=== PATIENT | female | born 1940 | race Caucasian/White ===

== ENCOUNTER 2018-12-21 14:18 | Emergency (ER) | payer MEDICARE, OTHER ==
[2018-12-21 14:28] VITALS: BP 115/51
--- NOTE | 2018-12-21 15:14 | XRAY Report ---
Reason: fall Procedure Date: 12/21/2018 Accession Number: [id number] / [id number] Procedure: XR - Ankle 3 View RT CPT Code: FULL RESULT: EXAM: RIGHT ANKLE RADIOGRAPHY EXAM DATE: 12/21/2018 02:46 PM. CLINICAL HISTORY: Fall. COMPARISON: None. TECHNIQUE: 4 views. FINDINGS: Limited by patient positioning. Bones: The bones are osteopenic. Tiny romelia of bone adjacent to the tip of the medial malleolus. Ill-defined sclerotic line extending horizontally through the upper aspect of the calcaneal tuberosity. No suspicious osseous lesion. Joints: Pes cavus configuration of the foot. There is mild osteoarthritis of the midfoot and tibiotalar joint. No dislocation. Other: Diffuse soft tissue swelling most pronounced over the lateral malleolus. IMPRESSION: 1. The bones are osteopenic. 2. Tiny romelia of bone adjacent to the tip of the medial malleolus is age indeterminate, however, favored to represent sequela of old trauma rather than acute avulsion fracture. 3. Ill-defined sclerotic line extending horizontally through the upper aspect of the calcaneal tuberosity favored to be sequela of old trauma or artifact, however, recommend correlation with point tenderness and consider CT for further evaluation if indicated. 4. Diffuse soft tissue swelling most pronounced over the lateral malleolus. RADIA
--- NOTE | 2018-12-21 15:20 | ED Physician Documentation ---
PD HPI LOWER EXT INJURY - Stated complaint Stated Complaint: R ANKLE INJ - Chief complaint Chief Complaint: Trauma Ext - History obtained from History obtained from: Patient - History of Present Illness PD HPI LOW EXT INJURY LOCATION: Right, Ankle Type of injury: Fall Where injury occurred: Home Timing - onset: How many days ago (2) Timing - duration: Days (2) Timing - details: Gradual onset Pain level max: 5 Pain level now: 3 Improved by: Rest, Ice, Immobilization Worsened by: Moving, Palpating Associated symptoms: Swelling. 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 HEENT: Tonsil/Adenoidectomy - Present Medications Home Medications: Ambulatory Orders Medication Instructions Recorded Confirmed ALPRAZolam [Xanax] 1 - 3 tab PO DAILY PRN 10/14/13 10/14/13 Carvedilol 1 tab PO DAILY 10/14/13 10/14/13 Furosemide [Lasix] 1 tab PO DAILY 10/14/13 10/14/13 Gabapentin 3 cap PO DAILY 10/14/13 10/14/13 Hydrocodone/Acetaminophen [Vicodin 2 tab PO Q6HR PRN 10/14/13 10/14/13 5-300 mg Tablet] Lovastatin 1 tab PO DAILY 10/14/13 10/14/13 Omeprazole [Prilosec] 2 cap PO DAILY 10/14/13 10/14/13 Potassium Chloride [Klor-Con] 1 packet PO DAILY 10/14/13 10/14/13 Warfarin [Coumadin] 1 tab PO DAILY 10/14/13 10/14/13 predniSONE [Prednisone] 1 tab PO DAILY 10/14/13 10/14/13 raNITIdine [Zantac] 1 tab PO DAILY 10/14/13 10/14/13 traMADol [Ultram] 1 - 2 tab PO TID PRN 10/14/13 10/14/13 - Allergies Allergies/Adverse Reactions: Allergies Allergy/AdvReac Type Severity Reaction Status Date / Time GRETTA Inhibitors Allergy Respiratory Verified 12/21/18 14:24 levofloxacin [From Levaquin] Allergy Rash Verified 12/21/18 14:24 Sulfa (Sulfonamide Allergy Hives Verified 12/21/18 14:24 Antibiotics) - Social History Does the pt smoke?: No Smoking Status: Never smoker Does the pt drink ETOH?: Yes Does the pt have substance abuse?: No - Immunizations Immunizations are current?: Yes - POLST Patient has POLST: No PD ED PE NORMAL - Vitals Vital signs reviewed: Yes - General General: Alert and oriented X 3, No acute distress - HEENT HEENT: Moist mucous membranes - Neck Neck: Supple, no meningeal sign - Derm Derm: Warm and dry - Extremities Extremities: Other (Mild diffuse tenderness about the right ankle. Neurovascular intact. No deformity) - Neuro Neuro: Alert and oriented X 3 Results - Vitals Vitals: Vital Signs - 24 hr 12/21/18 14:24 Temperature 36.6 C Heart Rate 70 Respiratory 16 Rate Blood Pressure 115/51 L O2 Saturation 98 Oxygen O2 Source Room air - Rads (name of study) Right ankle x-ray Radiology: Prelim report reviewed, EMP read contemporaneously, See rad report (1. The bones are osteopenic. 2. Tiny romelia of bone adjacent to the tip of the medial malleolus is age indeterminate, however, favored to represent sequela of old trauma rather than acute avulsion fracture. 3. Ill-defined sclerotic line extending horizontally through the upper aspect of the calcaneal tuberosity favored to be sequela of old trauma or artifact, however, recommend correlation with point tenderness and consider CT for further evaluation if indicated. 4. Diffuse soft tissue swelling most pronounced over the lateral malleolus. ) PD MEDICAL DECISION MAKING - ED course Complexity details: reviewed results, re-evaluated patient, considered differential, d/w patient, d/w family ED course: Patient with a right ankle sprain. Appears to have sequelae of old injuries on x-ray. This occurred 2 days ago. Placed in a walking boot for comfort. We will have her continue range of motion exercises at home and follow-up with her doctor. Patient counseled regarding signs and symptoms for which I believe and urgent re-evaluation would be necessary. Patient with good understanding of and agreement to plan and is comfortable going home at this time This document was made in part using voice recognition software. While efforts are made to proofread this document, sound alike and grammatical errors may occur. Departure - Departure Disposition: 01 Home, Self Care Clinical Impression: Right ankle sprain Qualifiers: Encounter type: initial encounter Involved ligament of ankle: unspecified ligament Qualified Code(s): S93.401A - Sprain of unspecified ligament of right ankle, initial encounter Condition: Good Instructions: ED Sprain Ankle Follow-Up: your,doctor in 1 week [Other] Comments: You can stay in the walking boot for the next week. I do want you to start moving your ankle gently and stretching it however. You can weight-bear as tolerated. Do not stay in the boot longer than a week. There do not appear to be any acute fractures on your x-rays today. Follow-up with your doctor for repeat evaluation next week. Discharge Date/Time: 12/21/18 15:45
== END 2018-12-21 15:45 | disposition home or self-care (01) ==
LOC: ED 14:18
DX: S93.401A Sprain of unspecified ligament of right ankle, initial encounter (principal); W01.0XXA Fall on same level from slipping, tripping and stumbling without subsequent striking against object, initial encounter; Y92.009 Unspecified place in unspecified non-institutional (private) residence as the place of occurrence of the external cause; M85.871 Other specified disorders of bone density and structure, right ankle and foot; I11.0 Hypertensive heart disease with heart failure; I50.9 Heart failure, unspecified; Z86.718 Personal history of other venous thrombosis and embolism; Z86.711 Personal history of pulmonary embolism; Z79.01 Long term (current) use of anticoagulants
CPT/HCPCS: 85610; 99282; 99283

== ENCOUNTER 2021-03-17 15:48 | Emergency (ER) | payer MEDICARE, OTHER ==
[2021-03-17] MEDS ORDERED: SODIUM CHLORIDE 0.9% 1,000 ML IV STA (16:23)
--- NOTE | 2021-03-17 16:26 | ED Physician Documentation ---
PD HPI FOCAL NEURO - Stated complaint Stated Complaint: IRREGULAR HR - Chief complaint Chief Complaint: Neuro - History obtained from History obtained from: Patient, Family - History of Present Illness Timing - onset: How many weeks ago (1) Timing - duration: Weeks (1) Timing - details: Abrupt onset, Still present Severity of deficit: Moderate Weakness: Arm, Hand, Left Numbness: No: Face, Arm, Hand, Leg, Foot, Right, Left, Other Associated symptoms: Headache, Fall. No: Nausea / vomiting, Seizure, Syncope, Head injury Contributing factors: positive: Anticoagulated Baseline status: positive: A&OX3, ambulatory, indep Similar symptoms before: Has not had sx before Recently seen: Clinic - Additional information Additional information: 81-year-old female has had a prior DVT and PE is on Xarelto she had a fall about 1 week ago and since that time has had some difficulty intermittently with left arm weakness. She is now dropping things with the left hand as well she has some clumsiness associated with this. She has some difficulty talking with getting the words out. She states that she did not find any difficulty with understanding what was being said or is saying the words that she meant to say just that her mouth did not form the words well. She indicates that she has been urinating a lot a lot of fluids seems to have clear urine. She has had diarrhea this past week and nausea and vomiting or dry heaves. She did fall but does not think she hit her head. Review of Systems Constitutional: denies: Fever, Chills, Myalgias, Fatigue Eyes: denies: Decreased vision Ears: denies: Ear pain Nose: denies: Congestion Throat: denies: Sore throat Cardiac: denies: Chest pain / pressure, Palpitations Respiratory: denies: Dyspnea, Cough GI: reports: Diarrhea. denies: Abdominal Pain, Nausea, Vomiting : denies: Dysuria, Frequency Skin: denies: Rash Musculoskeletal: denies: Neck pain, Back pain, Extremity pain Neurologic: reports: Focal weakness, Difficulty speaking, Syncope. 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 HEENT: Tonsil/Adenoidectomy - Present Medications Home Medications: Ambulatory Orders Medication Instructions Recorded Confirmed ALPRAZolam [Xanax] 1 - 3 tab PO DAILY PRN 10/14/13 10/14/13 Carvedilol 1 tab PO DAILY 10/14/13 10/14/13 Furosemide [Lasix] 1 tab PO DAILY 10/14/13 10/14/13 Gabapentin 3 cap PO DAILY 10/14/13 10/14/13 Hydrocodone/Acetaminophen [Vicodin 2 tab PO Q6HR PRN 10/14/13 10/14/13 5-300 mg Tablet] Lovastatin 1 tab PO DAILY 10/14/13 10/14/13 Omeprazole [Prilosec] 2 cap PO DAILY 10/14/13 10/14/13 Potassium Chloride [Klor-Con] 1 packet PO DAILY 10/14/13 10/14/13 Warfarin [Coumadin] 1 tab PO DAILY 10/14/13 10/14/13 predniSONE [Prednisone] 1 tab PO DAILY 10/14/13 10/14/13 raNITIdine [Zantac] 1 tab PO DAILY 10/14/13 10/14/13 traMADol [Ultram] 1 - 2 tab PO TID PRN 10/14/13 10/14/13 - Allergies Allergies/Adverse Reactions: Allergies Allergy/AdvReac Type Severity Reaction Status Date / Time GRETTA Inhibitors Allergy Respiratory Verified 03/17/21 15:57 levofloxacin [From Levaquin] Allergy Rash Verified 03/17/21 15:57 Sulfa (Sulfonamide Allergy Hives Verified 03/17/21 15:57 Antibiotics) - Social History Does the pt smoke?: No Smoking Status: Never smoker Does the pt drink ETOH?: Yes Does the pt have substance abuse?: No - Immunizations Immunizations are current?: Yes - POLST Patient has POLST: No PD ED PE NORMAL - Vitals Vital signs reviewed: Yes (hypertensive ) - General General: Alert and oriented X 3, No acute distress, Well developed/nourished - HEENT HEENT: Atraumatic, PERRL, EOMI, Other (The scalp is palpated deeply without tenderness. ) - Neck Neck: Supple, no meningeal sign, No bony TTP - Cardiac Cardiac: RRR, No murmur - Respiratory Respiratory: No respiratory distress, Clear bilaterally - Abdomen Abdomen: Normal bowel sounds, Soft, Non tender, Non distended, No organomegaly - Back Back: No CVA TTP, No spinal TTP - Derm Derm: Normal color, Warm and dry, No rash - Extremities Extremities: No deformity, No edema - Neuro Neuro: Alert and oriented X 3, account supervisor 2-12 intact, No motor deficit, No sensory deficit, Normal speech Eye Opening: Spontaneous Motor: Obeys Commands Verbal: Oriented GCS Score: 15 - Psych Psych: Normal mood, Normal affect NIHSS - Time Time: 16:15 - Level of Consciousness Level of consciousness: (0) Alert, Keenly responsive LOC Questions: (0) Answers both Q's correct LOC Commands: (0) Performs both correctly - Gaze Best Gaze: (0) Normal - Visual Visual: (0) No loss - Facial Palsy Facial Palsy: (0) Normal, symmetrical movement - Motor Arms (both separate) Motor Arm (right): (0) No drift Motor Arm (left): (0) No drift - Motor Legs (both separate) Motor Leg (right): (0) No drift Motor Leg (left): (0) No drift - Limb Ataxia Limb Ataxia: (0) Absent - Sensory Sensory: (0) Normal - Best Language Best Language: (0) No aphasia - Dysarthria Dysarthria: (0) Normal - Extinction and Inattention (formally neg Extinction and inattention: (0) No abnormality - Total Score/Results Total Score/Result: 0 Results - Vitals Vitals: Vital Signs - 24 hr 03/17/21 03/17/21 15:57 16:01 Temperature 36.4 C L 36.5 C Heart Rate 80 80 Respiratory 18 18 Rate Blood Pressure 147/92 H 147/92 H O2 Saturation 95 95 Oxygen O2 Source Room air - EKG (time done) 1600 Rate: Rate (enter#) (71) Other comments: Other comments (flat T waves ) Compare to prior EKG: Old EKG unavailable Computer interpretation: Agree with computer - Labs Labs: Laboratory Tests 03/17/21 03/17/21 03/17/21 16:29 16:29 16:29 WBC 7.2 RBC 4.03 L Hgb 12.9 Hct 39.1 MCV 97.0 MCH 32.0 H MCHC 33.0 RDW 13.3 Plt Count 210 MPV 10.6 Neut # (Auto) 4.9 Lymph # (Auto) 1.2 L [place] # (Auto) 0.9 Eos # (Auto) 0.1 Baso # (Auto) 0.1 Absolute Nucleated RBC 0.00 Nucleated RBC % 0.0 Sodium 138 Potassium 3.5 Chloride 100 L Carbon Dioxide 24 Anion Gap 14.0 H BUN 27 H Creatinine 1.5 H Estimated GFR (MDRD) 33 L Glucose 140 H Calcium 10.4 H Total Bilirubin 0.7 AST 20 ALT 14 Alkaline Phosphatase 68 Troponin I High Sens 9.7 Total Protein 7.1 Albumin 3.6 Globulin 3.5 Albumin/Globulin Ratio 1.0 Lipase 30 Procedures - IVC sono (time) 1620 Bedside IVC sono: IVC measures (cm) (0.81), Dehydration (est 2 liter deficit) PD MEDICAL DECISION MAKING - ED course Complexity details: reviewed old records, reviewed results, re-evaluated patient, considered differential, d/w patient, d/w family ED course: 81-year-old female on Xarelto has had a fall and since that time she has had vomiting and she has had some diarrhea. She has developed some intermittent left arm weakness and dysarthria. She is currently symptom-free. She is evaluated here in the emerge department found to be significantly dehydrated on interrogation the inferior vena cava. She has had diarrhea and vomiting. She is administered intravenous saline and work-up of the vasculature to her head and neck is obtained At shift change the studies are pending and care of the patient is turned over to Dr. Arambula.
--- NOTE | 2021-03-17 16:27 | XRAY Report ---
PROCEDURE: Chest 1 View X-Ray INDICATIONS: Chest pain TECHNIQUE: One view of the chest was acquired. COMPARISON: None FINDINGS: Surgical changes and devices: None. Lungs and pleura: No pleural effusions or pneumothorax. Chronic interstitial changes are present. Mediastinum: Mediastinal contours appear normal. Heart size is normal. Bones and chest wall: No suspicious bony lesions. Overlying soft tissues appear unremarkable. IMPRESSION: No acute pulmonary process. Reviewed by: Serena Hernandes MD on 03/17/2021 4:25 PM [facility] Approved by: Serena Hernandes MD on 03/17/2021 4:25 PM [facility] Station ID: [id number]
[2021-03-17 16:39] LABS: BASOPHILS # (AUTO) 0.1 10^3/uL (0.0-0.1); BASOPHILS % (AUTO) 0.7 %; EOSINOPHILS # (AUTO) 0.1 10^3/uL (0.0-0.7); EOSINOPHILS % (AUTO) 1.3 %; HCT - HEMATOCRIT 39.1 % (37.0-47.0); HGB - HEMOGLOBIN 12.9 g/dL (12.0-16.0); LYMPHOCYTES # (AUTO) 1.2 10^3/uL (1.5-3.5); LYMPHOCYTES % (AUTO) 16.3 %; MEAN PLATELET VOLUME 10.6 fL (7.9-10.8); MONOCYTES # (AUTO) 0.9 10^3/uL (0.0-1.0); MONOCYTES % (AUTO) 12.7 %; NEUTROPHILS # (AUTO) 4.9 10^3/uL (1.5-6.6); NEUTROPHILS % (AUTO) 68.7 %; PLT - PLATELET COUNT 210 10^3/uL (130-450); RED BLOOD COUNT 4.03 10^6/uL (4.20-5.40); RED CELL DISTRIBUTION WIDTH 13.3 % (12.0-15.0); WHITE BLOOD COUNT 7.2 x10^3/uL (4.8-10.8)
[2021-03-17 17:07] LABS: ALBUMIN 3.6 g/dL (3.2-5.5); BILIRUBIN,TOTAL 0.7 mg/dL (0.2-1.0); CALCIUM 10.4 mg/dL (8.5-10.3); CREATININE 1.5 mg/dL (0.4-1.0); POTASSIUM 3.5 mmol/L (3.5-5.0); TOTAL PROTEIN 7.1 g/dL (6.7-8.2)
[2021-03-17] MEDS ORDERED: iohexoL-300 100 ML VIAL ONE (17:11)
--- NOTE | 2021-03-17 19:00 | CT Report ---
PROCEDURE: ANGIO HEAD W/WO INDICATIONS: L arm weakness fall xaralto CONTRAST: IV CONTRAST: Isovue 300 ml: 80 PO CONTRAST: *NO PO CONTRAST TECHNIQUE: Precontrast 4.5 mm thick angled axial sections acquired from the foramen magnum to the vertex. Afte r the administration of intravenous contrast, 1 mm thick sections acquired through the [place] is. Postcontrast 4.5 mm thick sections then re-acquired from the foramen magnum to the vertex. 3-di mensional lsaliwb-rmjrvcxix-luwjehgnmk (MIP) and/or volume rendering reformats were acquired of the c entral intracranial vasculature. For radiation dose reduction, the following was used: automated ex posure control, adjustment of mA and/or kV according to patient size. COMPARISON: None FINDINGS: Image quality: Excellent. Anterior circulation: There is absence of flow in the intracranial right internal carotid artery comp atible with proximal occlusion. There is normal flow in the intracranial left internal carotid artery . Atherosclerotic calcifications noted in the cavernous and clinoid segments of the left internal car otid artery which causes mild narrowing of the vessel. There is reconstitution of very diminished ulysses w in the supraclinoid segment of the right internal carotid artery presumably via retrograde flow of the right ophthalmic artery and collateral flow to the [place]. There is diminished flow in the right middle cerebral artery. There is normal flow in the anterior communicating arteries bilater ally and in the left middle cerebral artery. The anterior communicating artery is seen. No aneurysms are seen. Posterior circulation: Atherosclerotic calcifications noted in the V4 segments of the vertebral arter ies bilaterally. There is normal flow in the basilar artery. Flow within the posterior cerebral arter ies is normal and symmetric. The left posterior tibial artery has a origin. No aneurysms are se en. Normal contrast opacification of the dural sinuses. CSF spaces: Ventricles are normal in size and shape. Basal cisterns are patent. No extra-axial flu id collections. Brain: Small hypodense area with loss of chsiholm-white matter differentiation is noted in the right fron bianka lobe most compatible with subacute infarct. No midline shift. No intracranial bleeds or masses. Chisholm-white matter interface appears intact. Skull and face: Calvarium and facial bones appear intact, without suspicious lesions. Sinuses: Visualized sinuses and mastoids are clear. IMPRESSION: 1. Small subacute infarct involving the right frontal lobe. 2. No intracranial hemorrhage. 3. Absence of flow in the intracranial right internal carotid artery compatible with proximal occlusi on. There is reconstitution of diminished flow in the supraclinoid segment of the right internal warner tid artery likely via retrograde flow in the right ophthalmic artery and collateral flow from the cir [place]. 4. Diminished flow in the right middle cerebral artery. Normal flow noted in the right anterior cereb ral artery likely related to collateral flow. 5. Normal flow in the left anterior middle cerebral arteries. 6. No large vessel occlusion or hemodynamically significant stenosis involving the posterior circulat ion. Reviewed by: Haley Julian MD, PhD on 03/17/2021 5:59 PM [place] Approved by: Haley Julian MD, PhD on 03/17/2021 5:59 PM [facility] Station ID: [id number]
--- NOTE | 2021-03-17 19:07 | CT Report ---
PROCEDURE: ANGIO NECK W INDICATIONS: L arm weakness dysarthria CONTRAST: IV CONTRAST: Isovue 300 ml: 80 PO CONTRAST: *NO PO CONTRAST TECHNIQUE: After the administration of intravenous contrast, 1.5 mm axial sections acquired from the aortic arch to the [place] of [place]. Coronal 3-D maximum intensity projection (MIP) and/or volume rendering ref ormats were then performed. For radiation dose reduction, the following was used: automated exposur e control, adjustment of mA and/or kV according to patient size. COMPARISON: None. FINDINGS: Image quality: Excellent. Carotid system: The great vessels demonstrate a conventional anatomy as they arise from the aortic a rch. The origins of the common carotid arteries appear patent. Scattered soft and calcified atherosc lerotic plaque noted in the common carotid arteries bilaterally. Soft atherosclerotic plaque noted in the distal right common carotid artery which extends into the right internal carotid artery origin w hich causes focal, high-grade, greater than 90% stenosis.. Calcified and soft atherosclerotic plaque causes high-grade stenosis to near occlusion of the proximal right internal carotid artery approximat zulay 5 mm distal to the origin of the vessel. There is very diminished flow in the right internal warner tid artery distal to the high-grade stenosis at the origin. There is very diminished flow in the intr acranial segments of the right internal carotid artery. Calcified atherosclerotic plaque in the origi n left internal carotid artery causes moderate, 50-60% stenosis of the vessel. Posterior circulation: Minimal atherosclerotic irregularity without measurable stenosis noted in the origin of the right vertebral artery. Origin left vertebral artery is fully patent. The more superior portions of the vertebral arteries demonstrate normal course and caliber. They join to form a melina l appearing basilar artery. Soft tissues: Visualized neck soft tissues demonstrate no suspicious abnormalities. The thyroid is normal in size and there are no incidental findings. Emphysematous changes noted in the lungs bilater ally. Bones: No suspicious bony lesions. Spine degenerative disc disease and facet arthropathy are noted. Visualized cervical spine appears normally aligned. IMPRESSION: 1. 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 There is very diminished flow in the right internal carotid artery distal to the proximal stenosis. 2. Moderate, 50-60% stenosis of the origin the left internal carotid artery. 3. No hemodynamically significant stenosis involving the vertebral arteries. The estimate of stenosis included in the report of the imaging study was calculated using the NASCET method Reviewed by: Haley Julian MD, PhD on 03/17/2021 6:06 PM [facility] Approved by: Haley Julian MD, PhD on 03/17/2021 6:06 PM [facility] Station ID: [id number]
[2021-03-17] MEDS ORDERED: ASPIRIN 325 MG TABLET PO STA (19:16)
--- NOTE | 2021-03-17 19:23 | ED Physician Documentation ---
ED Addendum - Addendum Addendum: 03/17/21 19:[address] Hernández at shift change. Briefly this is a 81-year-old woman with history of DVT and PE currently on Xarelto who presented with waxing and waning left-sided neurologic symptoms 7 days ago. On examination now she is mildly weak in the right hand and leg but does not have any drift. CT imaging of the head and neck with angiography shows high-grade stenosis of the proximal right ICA, and 50 to 60% stenosis of the left ICA. She has evidence of a small subacute right frontal lobe infarct and absence of flow in the intracranial right internal carotid artery due to the proximal occlusion. There is reconstitution of diminished flow in the supraclinoid segment of the right internal carotid artery likely via retrograde flow in the right ophthalmic artery and collateral flow from the [place]. Of note she did have an episode of blurred vision on the first day of symptoms. She was administered aspirin and calls were made for potential transfer to a facility capable of neurologic and vascular consultation and intervention. Note made that during the current COVID outbreak we expect her boarding time in the emergency department to be excessive and not standard of care but unavoidable. 03/17/21 19:41 I discussed the case with Dr. Roberson, her telestroke neurologist by phone. We went over the read and since it is occluded, and the stroke is a week old. He did not think she needs to be transferred for urgent vascular evaluation. That said out of an abundance of caution does recommend vascular follow-up in the short- term. Patient happy with this plan. She was given a copy of the CAT scans on a CD to aid in her follow-up.Diagnosis 1. Completed stroke 2. Occlusion of right internal carotid artery 3. Adequate anticoagulation
[2021-03-17 19:47] LABS: INR 1.1 (0.8-1.2); PT - PROTHROMBIN TIME 12.6 secs (9.9-12.6)
[2021-03-17 20:15] VITALS: BP 130/70
[2021-03-17 20:52] LABS: B. PARAPERTUSSIS- RESP PCR PAN NOT DETECTED; B. PERTUSSIS- RESP PCR PANEL NOT DETECTED; C. PNEUMONIAE- RESP PCR PANEL NOT DETECTED; CORONAVIRUS 229E-RESP PCR NOT DETECTED; CORONAVIRUS HKU1-RESP PCR NOT DETECTED; CORONAVIRUS NL63-RESP PCR NOT DETECTED; CORONAVIRUS OC43-RESP PCR NOT DETECTED; HUMAN METAPNEUMOVIRUS NOT DETECTED; INFLUENZA A- RESP PCR PANEL NOT DETECTED; INFLUENZA B - RESP PCR PANEL NOT DETECTED; M. PNEUMONIAE- RESP PCR PANEL NOT DETECTED; PARAINFLUENZA VIRUS 1 NOT DETECTED; PARAINFLUENZA VIRUS 2 NOT DETECTED; PARAINFLUENZA VIRUS 3 NOT DETECTED; PARAINFLUENZA VIRUS 4 NOT DETECTED; RHINOVIRUS/ENTEROVIRUS NOT DETECTED; RSV- RESP PCR PANEL NOT DETECTED; SARS-CoV-2 -RESP PCR PANEL NOT DETECTED
[2021-03-17] MEDS ORDERED: iohexoL-300 100 ML VIAL IVP ONE (21:07)
== END 2021-03-17 20:00 | disposition home or self-care (01) ==
LOC: ED 15:48
DX: I63.231 Cerebral infarction due to unspecified occlusion or stenosis of right carotid arteries (principal); R47.1 Dysarthria and anarthria; G83.21 Monoplegia of upper limb affecting right dominant side; E86.0 Dehydration; R11.2 Nausea with vomiting, unspecified; R19.7 Diarrhea, unspecified; I10 Essential (primary) hypertension; Z79.01 Long term (current) use of anticoagulants; Z86.711 Personal history of pulmonary embolism; Z86.718 Personal history of other venous thrombosis and embolism; Z20.822 Contact with and (suspected) exposure to COVID-19
CPT/HCPCS: 36415; 70496; 70498; 71045; 80053; 83690; 84484; 85025; 85610; 87631; 93005; 96360; 99284; 99285; A9270; Q9967; 0202U

== ENCOUNTER 2021-04-12 14:54 | Outpatient (CLI) | payer MEDICARE, OTHER | END 2021-04-12 14:55 | disposition critical access hospital (66) | LOC: EMS 14:54 | DX: R11.0 Nausea (principal); I69.354 Hemiplegia and hemiparesis following cerebral infarction affecting left non-dominant side; Z74.2 Need for assistance at home and no other household member able to render care | CPT/HCPCS: A0425; A0427 ==

== ENCOUNTER 2021-04-12 15:16 | Emergency (ER) | payer MEDICARE, OTHER ==
--- NOTE | 2021-04-12 15:33 | ED Physician Documentation ---
History of Present Illness - Stated complaint Stated Complaint: NAUSEA - Chief complaint Chief Complaint: Abd Pain - History obtained from History obtained from: Patient, EMS - Additonal information Additional information: This is an 81-year-old woman who was diagnosed with a completed stroke on March 17. It was associated with a carotid occlusion and she was started on antiplatelet therapy. She was already on Xarelto for history of DVT and PE. Since then she has not been doing well, she has developed incontinence of both bowel and bladder and her left-sided weakness is making it difficult for her to function at home where she lives with her who was recently diagnosed with lung cancer undergoing radiation therapy. She feels confused and has fallen several times due to the left-sided weakness without injury. She started vomiting with dry heaving and nausea about a week ago. That is not much better after the administration of Zofran on the way here. No new stroke symptoms. She talked with her doctor who wants to order PT, OT, home health, but she is unable to figure out how to do a telehealth visit with her doctor and as such Medicare will not pay for these interventions. She did see vascular surgery in the interim, Shadi Moseley in [place], no intervention on the carotid was recommended nor offered due to risk. Review of Systems Ten Systems: 10 systems reviewed and negative Constitutional: denies: Fever, Chills Cardiac: denies: Chest pain / pressure, Palpitations Respiratory: denies: Dyspnea, Cough GI: reports: Nausea, Vomiting, Diarrhea. 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 HEENT: Tonsil/Adenoidectomy - Present Medications Home Medications: Ambulatory Orders Medication Instructions Recorded Confirmed ALPRAZolam [Xanax] 1 - 3 tab PO DAILY PRN 10/14/13 10/14/13 Carvedilol 1 tab PO DAILY 10/14/13 10/14/13 Furosemide [Lasix] 1 tab PO DAILY 10/14/13 10/14/13 Gabapentin 3 cap PO DAILY 10/14/13 10/14/13 Hydrocodone/Acetaminophen [Vicodin 2 tab PO Q6HR PRN 10/14/13 10/14/13 5-300 mg Tablet] Lovastatin 1 tab PO DAILY 10/14/13 10/14/13 Omeprazole [Prilosec] 2 cap PO DAILY 10/14/13 10/14/13 Potassium Chloride [Klor-Con] 1 packet PO DAILY 10/14/13 10/14/13 Warfarin [Coumadin] 1 tab PO DAILY 10/14/13 10/14/13 predniSONE [Prednisone] 1 tab PO DAILY 10/14/13 10/14/13 raNITIdine [Zantac] 1 tab PO DAILY 10/14/13 10/14/13 traMADol [Ultram] 1 - 2 tab PO TID PRN 10/14/13 10/14/13 Metoclopramide [Reglan] 10 mg PO Q6H PRN #20 tablet 04/12/21 - Allergies Allergies/Adverse Reactions: Allergies Allergy/AdvReac Type Severity Reaction Status Date / Time GRETTA Inhibitors Allergy Respiratory Verified 03/17/21 15:57 levofloxacin [From Levaquin] Allergy Rash Verified 03/17/21 15:57 Sulfa (Sulfonamide Allergy Hives Verified 03/17/21 15:57 Antibiotics) - Social History Does the pt smoke?: No Smoking Status: Never smoker Does the pt drink ETOH?: Yes Does the pt have substance abuse?: No - Immunizations Immunizations are current?: Yes - POLST Patient has POLST: No PD ED PE NORMAL - Vitals Vital signs reviewed: Yes - General General: Alert and oriented X 3, No acute distress - HEENT HEENT: PERRL, EOMI - Neck Neck: Supple, no meningeal sign, No bony TTP - Cardiac Cardiac: RRR, No murmur - Respiratory Respiratory: No respiratory distress, Clear bilaterally - Abdomen Abdomen: Normal bowel sounds, Soft, Non tender - Back Back: No CVA TTP, No spinal TTP - Derm Derm: Normal color, Warm and dry - Extremities Extremities: No edema, No calf tenderness / cord - Neuro Neuro: Alert and oriented X 3, Normal speech Eye Opening: Spontaneous Motor: Obeys Commands Verbal: Oriented GCS Score: 15 Results - Vitals Vitals: Vital Signs - 24 hr 04/12/21 04/12/21 04/12/21 15:23 15:28 17:28 Temperature 37.3 C 37.3 C Heart Rate 73 73 74 Respiratory 17 17 19 Rate Blood Pressure 126/101 H 126/101 H 160/90 H O2 Saturation 95 95 99 04/12/21 19:00 Temperature Heart Rate 76 Respiratory 17 Rate Blood Pressure 152/83 H O2 Saturation 96 Oxygen O2 Source Room air - EKG (time done) 1531 Rate: Rate (enter#) (73) Rhythm: NSR Closplint: Normal Intervals: Normal MT QRS: Normal Ischemia: Normal ST segments Computer interpretation: Agree with computer - Labs Labs: Laboratory Tests 04/12/21 04/12/21 04/12/21 15:57 15:57 15:57 WBC 13.1 H RBC 3.82 L Hgb 11.8 L Hct 36.5 L MCV 95.5 MCH 30.9 MCHC 32.3 RDW 13.5 Plt Count 204 MPV 11.9 H Neut # (Auto) 10.1 H Lymph # (Auto) 1.1 L Stephenson # (Auto) 1.8 H Eos # (Auto) 0.0 Baso # (Auto) 0.1 Absolute Nucleated RBC 0.00 Band Neuts % (Manual) Not Reportable Abnorm Lymph % (Manual) Not Reportable Nucleated RBC % 0.0 Neutrophils # (Manual) Not Reportable Lymphocytes # (Manual) Not Reportable Monocytes # (Manual) Not Reportable Eosinophils # (Manual) Not Reportable Basophils # (Manual) Not Reportable Differential Comment MANUAL=AUTO DIFF Manual Slide Review Indicated Platelet Estimate NORMAL (130-450,000) Platelet Morphology NORMAL APPEARANCE RBC Morph Micro Appear NORMAL APPEARANCE PT 22.0 H INR 2.0 H Sodium 139 Potassium 3.2 L Chloride 105 Carbon Dioxide 23 Anion Gap 11.0 BUN 15 Creatinine 1.4 H Estimated GFR (MDRD) 36 L Glucose 138 H Calcium 8.9 Magnesium 1.1 L Total Bilirubin 0.6 AST 28 ALT 11 Alkaline Phosphatase 68 Total Protein 6.2 L Albumin 2.7 L Globulin 3.5 Albumin/Globulin Ratio 0.8 L PD MEDICAL DECISION MAKING - ED course ED course: This is an 81-year-old woman who had a completed stroke and now is dysfunctional at home with her weakness. She describes being unable to get off the toilet by herself due to weakness. Multiple falls despite using her walker albeit without injury at this juncture. She has been having trouble working with her primary care physician, Dr. Shar Lama MD. Who is a chicken buyer in [place], although reportedly her PCP ordered home health, OT, PT. She is having persistent nausea which we treated here with a small dose of Reglan as she did not have relief with Zofran on the way here. I will get social work involved and try to contact her PCP to get her what she needs. I did speak with Dr. Rai who is on-call for her primary care physician, and he will put in a request, they have a specialized system to follow-up with at risk patients like this who may need help navigating the system. Patient's was updated on results and felt much better after the Reglan. She was offered to stay in the emergency department for safety which she declined. I called the sister to come pick her up but she has concerns about safety at home and the sister will come to the emergency department to discuss since the patient has declined admission. The patient's sister and the patient's came to the bedside and we had a family conference. In the interim I was able to watch the patient ambulate, she is a 0-1 person assist, she does drag the left foot but once she is ambulatory she can generally do so with a walker relatively safely. She does require some help with position changes, but can sit up in the bed and on the side of the bed by herself. We discussed the background with the patient and family and discu ssed options. The patient did feel that the walker we gave her here works better so this was dispensed compared to the one she has at home already. She was again offered admission but even with the family at bedside continue to decline admission and would like to go home. I counseled the family on the ability to return anytime if worsening or if goals of care change, also educated on lift assist. Departure - Departure Disposition: Home, Self Care Clinical Impression: Adequate anticoagulation on anticoagulant therapy Cerebrovascular accident (CVA) Qualifiers: CVA mechanism: unspecified Qualified Code(s): I63.9 - Cerebral infarction, unspecified Condition: Good Record reviewed to determine appropriate education?: Yes Instructions: ED Mechanical Fall Prescriptions: Metoclopramide [Reglan] 10 mg PO Q6H PRN #20 tablet PRN Reason: nausea or headache Comments: I sent your prescription electronically to [facility] in [place]. Today I discussed her case with Dr. Rai, he is on-call for Dr. Funes. He will have their social work assistant call you and figure out a plan to get to the Occup ational Therapy, home health, and physical therapy that you need. Return for new or worsening symptoms. NIHSS - Time Time: 15:40 - Level of Consciousness Level of consciousness: (0) Alert, Keenly responsive LOC Questions: (0) Answers both Q's correct LOC Commands: (0) Performs both correctly - Gaze Best Gaze: (0) Normal - Visual Visual: (0) No loss - Facial Palsy Facial Palsy: (0) Normal, symmetrical movement - Motor Arms (both separate) Motor Arm (right): (0) No drift Motor Arm (left): (1) Drift - Motor Legs (both separate) Motor Leg (right): (0) No drift Motor Leg (left): (1) Drift - Limb Ataxia Limb Ataxia: (0) Absent - Sensory Sensory: (1) Awcp-mo-hejryzdl loss (chronic decreased sensation RLE d/t prior wound/surgery) - Best Language Best Language: (0) No aphasia - Dysarthria Dysarthria: (0) Normal - Extinction and Inattention (formally neg Extinction and inattention: (0) No abnormality - Total Score/Results Total Score/Result: 3
[2021-04-12] MEDS ORDERED: METOCLOPRAMIDE 10 MG/2 ML VIAL IVP STA (15:35)
[2021-04-12 16:06] LABS: BASOPHILS # (AUTO) 0.1 10^3/uL (0.0-0.1); BASOPHILS % (AUTO) 0.5 %; EOSINOPHILS % (AUTO) 0.2 %; HCT - HEMATOCRIT 36.5 % (37.0-47.0); HGB - HEMOGLOBIN 11.8 g/dL (12.0-16.0); LYMPHOCYTES # (AUTO) 1.1 10^3/uL (1.5-3.5); LYMPHOCYTES % (AUTO) 8.1 %; MEAN CORPUSCULAR HEMOGLOBIN 30.9 pg (27.0-31.0); MEAN CORPUSCULAR HGB CONC 32.3 g/dL (32.0-36.0); MEAN CORPUSCULAR VOLUME 95.5 fL (81.0-99.0); MEAN PLATELET VOLUME 11.9 fL (7.9-10.8); MONOCYTES # (AUTO) 1.8 10^3/uL (0.0-1.0); MONOCYTES % (AUTO) 13.9 %; NEUTROPHILS # (AUTO) 10.1 10^3/uL (1.5-6.6); NEUTROPHILS % (AUTO) 76.8 %; PLT - PLATELET COUNT 204 10^3/uL (130-450); RED BLOOD COUNT 3.82 10^6/uL (4.20-5.40); RED CELL DISTRIBUTION WIDTH 13.5 % (12.0-15.0); WHITE BLOOD COUNT 13.1 x10^3/uL (4.8-10.8)
[2021-04-12 16:08] LABS: SLIDE REVIEW? Indicated
[2021-04-12 16:15] LABS: ALBUMIN 2.7 g/dL (3.2-5.5); ALBUMIN/GLOBULIN RATIO 0.8 (1.0-2.2); BILIRUBIN,TOTAL 0.6 mg/dL (0.2-1.0); CALCIUM 8.9 mg/dL (8.5-10.3); CREATININE 1.4 mg/dL (0.4-1.0); MAGNESIUM 1.1 mg/dL (1.7-2.8); POTASSIUM 3.2 mmol/L (3.5-5.0); TOTAL PROTEIN 6.2 g/dL (6.7-8.2)
[2021-04-12 16:32] LABS: PLATELET ESTIMATE, MANUAL NORMAL (130-450,000) (NORMAL); PLATELET MORPHOLOGY NORMAL APPEARANCE (NORMAL); RBC MORPHOLOGY (MULTIPLE) NORMAL APPEARANCE (NORMAL)
[2021-04-12 16:33] LABS: DIFFERENTIAL COMMENT MANUAL=AUTO DIFF
--- NOTE | 2021-04-12 17:55 | CT Report ---
PROCEDURE: CT head without contrast INDICATIONS: nausea p cva TECHNIQUE: Noncontrast 4.5 mm thick angled axial sections acquired from the foramen magnum to the vertex. For r adiation dose reduction, the following was used: automated exposure control, adjustment of mA and/or kV according to patient size. COMPARISON: 10/14/2013 FINDINGS: Image quality: Excellent. CSF spaces: Basal cisterns are patent. No extra-axial fluid collections. Ventricles are normal in size and shape. Brain: No midline shift. No intracranial masses or hemorrhage. [place]-white matter interface is norm al. Moderate atrophy and multifocal white matter chronic ischemic change noted. Atherosclerotic vasc ular calcification noted in the cavernous segments of both internal carotid arteries as well as the i ntradural vertebral arteries. Multifocal encephalomalacia and gliosis noted in the anterior right MCA territory Skull and face: Calvarium and visualized facial bones are intact, without suspicious lesions. Bilate ral intraocular lens replacements noted. Sinuses: Visualized sinuses and mastoids are clear. IMPRESSION: Atrophy and chronic ischemic change without acute hemorrhage or mass effect. Old right frontal infarct Reviewed by: Ranjan Lopez MD on 04/12/2021 4:54 PM AKST Approved by: Ranjan Lopez MD on 04/12/2021 4:54 PM AKST Station ID: [id number]
[2021-04-12 19:37] VITALS: BP 152/83
== END 2021-04-12 20:16 | disposition home or self-care (01) ==
LOC: EDUNIT# → ED 15:16
DX: I63.9 Cerebral infarction, unspecified (principal); Z79.01 Long term (current) use of anticoagulants
CPT/HCPCS: 36415; 70450; 80053; 83735; 85025; 85610; 93005; 96374; 99284; J2765